=== PATIENT | male | born 1975 | race Caucasian/White ===

== ENCOUNTER 2016-05-16 19:10 | Emergency (ER) | payer OTHER ==
[~2016-05-16] VITALS: Ht 167.6 cm; Wt 95.5 kg
[2016-05-16] MEDS ORDERED: INDOCIN50 MG PO (19:44)
[2016-05-16] MEDS ORDERED: AUGMENTIN875 MG PO (19:44)
[2016-05-16 20:02] VITALS: BP 145/81
== END 2016-05-16 20:13 | disposition home or self-care (01) ==
LOC: EME 19:10
DX: K02.9 Dental caries, unspecified (principal); F17.200 Nicotine dependence, unspecified, uncomplicated
CPT/HCPCS: 99281; 99284